=== PATIENT | female | born 1965 | race Caucasian/White ===

== ENCOUNTER 2024-03-24 18:03 | Emergency (ER) | payer SELFPAY ==
[~2024-03-24] VITALS: Ht 160 cm; Wt 75.0 kg
[2024-03-24 18:05] VITALS: O2SAT 98
[2024-03-24] MEDS ORDERED: PROP1DRO4 EACHEYE (20:31)
[2024-03-24 20:49] VITALS: BP 130/87; PULSE 71; RESP 18; TEMP 36.72516; O2SAT 99
== END 2024-03-24 20:57 | disposition home or self-care (01) ==
LOC: ER 18:03
DX: H57.89 Other specified disorders of eye and adnexa (principal); Z98.890 Other specified postprocedural states
CPT/HCPCS: 99282